=== PATIENT | female | born 1970 | race Caucasian/White ===

== ENCOUNTER → 2016-10-18 | Outpatient (CLI) | payer BC ==
[2016-10-18 11:20] LABS: HEMATOCRIT 40.5 % (37-47); MEAN CELL VOLUME 89.4 fL (80-100); MEAN CORPUSCULAR HEMOGLOBIN 30.5 pg (25-34); MEAN CORPUSCULAR HGB CONC 34.1 g/dl (32-36); MEAN PLATELET VOLUME 10.3 fL (7.4-10.4); PLATELET COUNT 217 K/uL (130-400); RED BLOOD COUNT 4.53 M/uL (4.2-5.4); WHITE BLOOD COUNT 6.23 K/uL (4.8-10.8)
[2016-10-18 11:27] LABS: BLOOD UREA NITROGEN 13 mg/dl (7-18); CALCIUM 8.7 mg/dl (8.5-10.1); CARBON DIOXIDE 23 mmol/L (21-32); CHLORIDE 107 mmol/L (98-107); CHOLESTEROL 169 mg/dl (0-200); CREATININE 0.68 mg/dl (0.60-1.20); GLUCOSE 87 mg/dl (70-99); POTASSIUM 4.2 mmol/L (3.5-5.1); SODIUM 140 mmol/L (136-145)
[2016-10-18 11:30] LABS: CHOLESTEROL/HDL RATIO 2.6; HDL CHOLESTEROL 64 mg/dl; LDL CHOLESTEROL CALCULATED 94 mg/dl; TRIGLYCERIDES 53 mg/dl (0-150); VERY LOW DENSITY LIPOPROT CALC 11 mg/dl
== END | disposition home or self-care (01) ==
LOC: C.LAB1850 09:42
PROVIDERS: ATTEND Family Medicine
DX: Z13.220 Encounter for screening for lipoid disorders (principal); E55.9 Vitamin D deficiency, unspecified; E53.8 Deficiency of other specified B group vitamins

== ENCOUNTER → 2016-11-15 | Outpatient (CLI) | payer BC | END | disposition home or self-care (01) | LOC: C.PAPS 10:29 | PROVIDERS: ATTEND Obstetrics & Gynecology | DX: Z01.419 Encounter for gynecological examination (general) (routine) without abnormal findings (principal) ==

== ENCOUNTER → 2017-08-23 | Outpatient (CLI) | payer BC ==
--- NOTE | 2017-08-24 15:59 | MAMMOGRAPHY REPORT ---
BILATERAL DIGITAL SCREENING MAMMOGRAM TOMOSYNTHESIS WITH CAD: 08/23/2017 CLINICAL HISTORY: Routine screening. Patient has no complaints. TECHNIQUE: Breast tomosynthesis in addition to standard 2D mammography was performed. Current study was also evaluated with a Computer Aided Detection (CAD) system. COMPARISON: Comparison is made to exams dated: 08/20/2016 mammogram, 08/19/2015 mammogram, 07/02/2014 mammogram, 06/28/2013 mammogram, 06/13/2012 mammogram, and 06/10/2011 mammogram - [facility]. BREAST COMPOSITION: The tissue of both breasts is heterogeneously dense, which may obscure small mas ses. FINDINGS: The glandular pattern is similar to prior mammograms. There are stable benign calcificatio ns bilaterally. No suspicious mass, architectural distortion or cluster of microcalcifications is se en. IMPRESSION: ACR BI-RADS CATEGORY 1: NEGATIVE There is no mammographic evidence of malignancy. A 1 year screening mammogram is recommended. The pa tient will receive written notification of the results. Approximately 10% of breast cancers are not detected with mammography. A negative mammographic report should not delay biopsy if a clinically suggestive mass is present. Zoe Heaht M.D. ay/:08/23/2017 17:33:06 Office Worker: Elli PICKENS(R)(M), [facility] letter sent: Normal 1/2 BI-RADS Code: ACR BI-RADS Category 1: Negative
== END | disposition home or self-care (01) ==
LOC: C.MAMM 12:32
PROVIDERS: ATTEND Obstetrics & Gynecology
DX: Z12.31 Encounter for screening mammogram for malignant neoplasm of breast (principal)

== ENCOUNTER → 2017-12-19 | Outpatient (CLI) | payer OTHER ==
[2017-12-19 13:22] LABS: HEMATOCRIT 41.6 % (37-47); HEMOGLOBIN 14.2 g/dL (12.0-16.0); MEAN CELL VOLUME 87.9 fL (80-100); MEAN CORPUSCULAR HGB CONC 34.1 g/dl (32-36); MEAN PLATELET VOLUME 9.3 fL (7.4-10.4); PLATELET COUNT 232 K/uL (130-400); RED CELL DISTRIBUTION WIDTH CV 12.9 % (11.5-14.5); RED CELL DISTRIBUTION WIDTH SD 41.7 fL (36.4-46.3); WHITE BLOOD COUNT 5.88 K/uL (4.8-10.8)
== END | disposition home or self-care (01) ==
LOC: C.LAB1850 12:36
PROVIDERS: ATTEND Obstetrics & Gynecology
DX: R61 Generalized hyperhidrosis (principal)